=== PATIENT | female | born 1960 | race Caucasian/White ===

== ENCOUNTER 2018-01-12 14:11 | Emergency (ER) | payer OTHER ==
[~2018-01-12] VITALS: Ht 167.6 cm; Wt 90.7 kg
--- OUTSIDE RECORDS SUMMARY | ~2018-01-12 | XMS | Clinical Summary ---
Demographics + + + | Address | [address] | | | [place] [address] | + + + | Home Phone | | + + + | Preferred Language | Unknown | + + + | Marital Status | | + + + | Mormon Affiliation | Unknown | + + + | Race | White | + + + | Ethnic Group | Not or | + + + Author + + + | Author | [facility] | + + + | Organization | [facility] | + + + | Address | Unknown | + + + | Phone | Unavailable | + + + Support + + + + + | Name | Relationship | Address | Phone | + + + + + | Zia Pablo | ECON | [address] | | | | | [place] | | | | | [address] | | + + + + + Care Team Providers + +------+ + | Care Machine Setter Automatic Name | Role | Phone | + +------+ + | Amado Medeiros DO | PP | | + +------+ + Source Comments HOLLIE is fully live on both [facility] Ambulatory and [facility] InPatient.[facility] Allergies No Known Allergies Current Medications + + +-------+---------+------+------+-------+ | Prescription | Sig. | Disp. | Refills | Star | End | Statu | | | | | | t | Date | s | | | | | | Date | | | + + +-------+---------+------+------+-------+ | GABAPENTIN ORAL | Take by mouth two | | | | | Activ | | | times daily. | | | | | e | + + +-------+---------+------+------+-------+ | CARBAMAZEPINE ORAL | Take 200 mg by mouth | | | | | Activ | | | two times daily. | | | | | e | + + +-------+---------+------+------+-------+ | AMLODIPINE | Take 10 mg by mouth | | | | | Activ | | BESYLATE (AMLODIPINE | two times daily. | | | | | e | | ORAL) | | | | | | | + + +-------+---------+------+------+-------+ | METFORMIN HCL | Take 500 mg by mouth | | | | | Activ | | (METFORMIN ORAL) | once daily. | | | | | e | + + +-------+---------+------+------+-------+ | TORSEMIDE ORAL | Take 20 mg by mouth | | | | | Activ | | | two times daily. | | | | | e | + + +-------+---------+------+------+-------+ | dicyclomine 20 mg | Take 20 mg by mouth | | | | | Activ | | Oral tablet | four times daily. | | | | | e | + + +-------+---------+------+------+-------+ | ASPIRIN ORAL | Take 80 mg by mouth. | | | | | Activ | | | | | | | | e | + + +-------+---------+------+------+-------+ | NAPROXEN ORAL | Take by mouth. | | | | | Activ | | | | | | | | e | + + +-------+---------+------+------+-------+ | ZOLPIDEM TARTRATE | Take by mouth. | | | | | Activ | | (AMBIEN ORAL) | | | | | | e | + + +-------+---------+------+------+-------+ | VENTOLIN HFA 90 | | | 6 | 02/1 | | Activ | | mcg/actuation | | | | 6/20 | | e | | inhalation HFA | | | | 16 | | | | aerosol inhaler | | | | | | | + + +-------+---------+------+------+-------+ Active Problems + + + | Problem | Noted Date | + + + | Drusen (degenerative) of retina | 07/31/2012 | + + + | Choroidal disorder | 03/11/2012 | + + + Social History + +-------+ +--------+------+ | Tobacco Use | Types | Packs/Day | Years | Date | | | | | Used | | + +-------+ +--------+------+ | Former Smoker | | | | | + +-------+ +--------+------+ + + + | Sex Assigned at | Date Recorded | | | | + + + | Not on file | | + + + Plan of Treatment +--------+ + + + + | Date | Type | Specialty | Care Team | Description | +--------+ + + + + | 12/06/ | Procedure | | | | | 2019 | | | | | +--------+ + + + + | 12/07/ | Office | | Crescencio Gregory, | | | 2018 | Visit | | [address] | | | | | | [place] | | | | | | [place], [place] | | | | | | [address] | | | | | | [phone] | | | | | | | | +--------+ + + + + + + + + + | Health Maintenance | Due Date | Last Done | Comments | + + + + + | INFLUENZA VACCINE | | | | | (FLU SHOT) | 8 | | | + + + + + Results Not on filefrom Last 3 Months"
--- OUTSIDE RECORDS SUMMARY | ~2018-01-12 | XMS | Clinical Summary ---
Demographics + + + | Address | [address] | | | [place] [address] | + + + | Home Phone | | + + + | Preferred Language | Unknown | + + + | Marital Status | | + + + | Faith Affiliation | Unknown | + + + | Race | White | + + + | Ethnic Group | Not or | + + + Author + + + | Author | [facility] | + + + | Organization | [facility] | + + + | Address | Unknown | + + + | Phone | Unavailable | + + + Support + + + + + | Name | Relationship | Address | Phone | + + + + + | Zia Pablo | ECON | [address] | | | | | [place] | | | | | [address] | | + + + + + Care Team Providers + +------+ + | Care Air Brake Operator Name | Role | Phone | + +------+ + | Amado Medeiros DO | PP | | + +------+ + Source Comments HOLLIE is fully live on both [facility] Amb[facility] and [facility] InPatient.[facility] Allergies No Known Allergies Current Medications [...] | | 2018 | Visit | | [address] | | | | | | [place] | | | | | | [place], [place] | | | | | | [address] | | | | | | [phone] | | | | | | | [...]
[~2018-01-12 14:11] MED LIST: CARBATROL100 MG; DICYCLOMINE HCL20 MG PO; GABAPENTIN300 MG PO; LISINOPRIL2.5 MG PO; METFORMIN HCL500 MG PO; NEURONTIN400 MG PO; NORCO 5-325 TA1 EACH PO; NORVASC10 MG PO; OMEPRAZOLE20 M1 PO; PRINIVIL10 MG PO; TORSEMIDE20 MG PO; VITAMIN D50000 UNI1 PO; ZOLPIDEM TARTRAT5 MG PO
[2018-01-12] MEDS ORDERED: FLAGYL500 MG PO (16:44)
[2018-01-12] MEDS ORDERED: ZOFRAN ODT4 MG PO (16:44)
== END 2018-01-12 18:01 | disposition home or self-care (01) ==
LOC: ED 14:11
DX: K52.9 Noninfective gastroenteritis and colitis, unspecified (principal); Z79.899 Other long term (current) drug therapy
CPT/HCPCS: 74177; 80053; 81001; 83605; 85025; 86850; 86900; 86901; 87077; 87088; 87186; 96361; 96374; 96375; 99284; J2270; J2405; J7030; Q9967

== ENCOUNTER 2018-09-11 15:13 | Observation (INO) | payer OTHER ==
[~2018-09-11] VITALS: Ht 167.6 cm; Wt 87.1 kg
[~2018-09-11 15:13] MED LIST changes: +FLAGYL500 MG PO; +ZOFRAN ODT4 MG PO
--- NOTE | 2018-09-11 19:40 | NUR ---
BEDSIDE REPORT RECEIVED FROM LOU CONNELLY. PT RESTING IN BED AWAKE, RATES PAIN 8-9/10. CALL LIGHT IN REACH. PT VERBALIZES UNDERSTANDING TO USE CALL LIGHT PRIOR TO GETTING OUT OF BED.
--- NOTE | 2018-09-11 20:10 | NUR ---
PT ASSESSMENT COMPLETE. IV ANTIBIOTIC INFUSING WNL. PT RATES PAIN 7/10 IN BACK AT THIS TIME, PRN IV PAIN MEDICATION ADMINISTERED. PT GIVEN FOLDED DRAW SHEET TO BRACE ABDOMEN. BOWEL TONES ACTIVE X 4, ABD SOFT. PT EDUCATION PROVIDED ON DIET, BROTH AND SPRITE PROVIDED. CALL LIGHT IN REACH. NO REQUESTS AT THIS TIME.
--- NOTE | 2018-09-11 20:35 | NUR ---
PT CONCERNED ABOUT HER "IBS" MEDICATION, AND MISSING IT. CONTACTED DR PURDY, RECEIVED ORDER FOR TONIGHT. WILL PASS TO DAYSHIFT, FOR DR PURDY TO DISCUSS FURTHER ADMINISTRATION OF MEDICATION. CURRENT ORDERS ARE "BRIDGE" ORDERS, OK FROM DR PURDY TO CONTINUE THE BRIDGE ORDERS. PT AWARE THAT DR PURDY WILL DISCUSS WITH HER, DICYCLOMINE FOR FURTHER DOSING TOMORROW.
--- NOTE | 2018-09-11 21:08 | NUR ---
SCHEDULED MEDICATION ADMINISTERED. PT RESTING IN BED, RATES PAIN 4/10 IN BACK "ITS OKAY". ADDITIONAL PILLOW PROVIDED. IV ANTIBIOTIC INFUSION COMPLETE. IVF INFUSING WNL. CALL LIGHT IN REACH.
--- NOTE | 2018-09-11 22:33 | NUR ---
CHECKED ON PT, RESTING IN BED. SBA TO RESTROOM FOR VOID. GAIT STEADY. PT RATES PAIN 4/10 STATES "ITS TOLERABLE". DENIES NEED FOR PRN PAIN MEDICATION. ORAL CARE COMPLETE. GERMÁN SAVAGE NOW IN ROOM FOR VITALS. IVF INFUSING WNL.
--- NOTE | 2018-09-12 00:41 | NUR ---
CHECKED ON PT, RESTING IN BED WITH EYES CLOSED. BREATHING EQUAL AND NON-LABORED. LIGHTS OFF IN ROOM.
--- NOTE | 2018-09-12 02:02 | NUR ---
IN PT ROOM FOR IV ANTIBIOTIC ADMINISTRATION. VSS. PT DENIES ANY PAIN AT THIS TIME. BOWEL TONES ACTIVE X 4, ABD SOFT, NON-TENDER W PALPATION AT THIS TIME. IV ANTIBIOTIC INFUSING WNL, SITE FLUSHED WNL. DOOR SHUT PER PT REQUEST, LIGHTS OFF IN ROOM. DENIES TOILETING NEEDS AT THIS TIME. CALL LIGHT IN REACH.
--- NOTE | 2018-09-12 04:55 | NUR ---
CHECKED ON PT, RESTING IN BED WITH EYES CLOSED. BREATHING EQUAL AND NON-LABORED. LIGHTS OFF IN ROOM.
--- NOTE | 2018-09-12 05:00 | NUR ---
PT RESTED WELL THIS SHIFT. PAIN WELL CONTROLLED WITH PRN IV DILAUDID X 1. IVF INFUSING WNL THROUGHOUT SHIFT. IV FLAGYL ORDERED. BOWEL TONES ACTIVE, ABD SOFT, TENDER IN RUQ W PALPATION. VSS. SBA TO RESTROOM FOR VOIDS. NPO SINCE MIDNIGHT FOR SURGERY. NO NAUSEA NOTED.
--- NOTE | 2018-09-12 05:41 | NUR ---
CALL LIGHT ANSWERED, SBA TO RESTROOM FOR UNMEASURED VOID AND BACK TO BED. PT RATES PAIN 4/10 IN ABD. PRN NAUSEA MEDICATION ADMINISTERED. PT STATES "I WOULD NORMALLY TAKE TUMS RIGHT NOW". IVF INFUSING WNL. CALL LIGHT IN REACH. PT REMINDED OF NPO STATUS, VERBALIZES UNDERSTANDING.
--- NOTE | 2018-09-12 07:52 | EKG ---
[facility] [address] [place], [place] [address] Signed Normal sinus rhythm Inferior infarct , age undetermined Abnormal ECG No previous ECGs available Confirmed by NAMAN PACHECO MD ([id number]) on 09/12/2018 7:52:33 AM Electronically Signed By: NAMAN PACHECO MD 09/12/18 0752 PATIENT NAME: IBIS DIAS AMAIRANI Electrocardiogram DATE OF : 62 PHYSICIAN: NAMAN PACHECO MD REPORT #: [id number] REPORT IS CONFIDENTIAL AND NOT TO BE RELEASED WITHOUT AUTHORIZATION
--- NOTE | 2018-09-12 08:50 | NUR ---
NAILING MACHINE OPERATOR AUTOMATIC CAME TO THIS RN STATING PT IS REALLY REALLY UPSET AND CRYING AND "HER IV IS ON FIRE." THIS RN TO BEDSIDE. POTASSIUM INFUSING. INFUSION STOPPED. PIV FLUSHED. PT REPOTS PAIN IS GONE. INFUSION RESTARTED WITH IV FLUIDS RUNNING CONCURRENTLY, RATE OF POTASSIUM SLOWED TO 60ML/HR. PT REPORS NO PAIN. BED RAILS UP. CALL LIGHT WITHIN REACH.
--- NOTE | 2018-09-12 09:40 | NUR ---
PATIENT TAKEN TO SURGERY AT THIS TIME, PRE PROCEDURE WIPES DONE AND FLAGYL COMPLETED.
--- NOTE | 2018-09-12 11:28 | NUR ---
09/12/18 1128 Eric Armijo 1105 PT ARRIVES TO PACU, KILN PLACER REPORT RECVD. ORAL AIRWAY IN PLACE, PT WAKING. ORAL AIR WAY REMOVED FOR PT COMFORT. O2 JULIA IN PLACE AT 8L. VITALS STABLE. PT RESTING. 1107 PT AWAKE ON AND OFF. PT C/O BEING "HOT". BLANKETS REMOVED AND COOL AIR APPLIED. PT C/O NAUSEA, ZOFRAN GIVEN. NO EMESIS NOTED AT THIS TIME. PT ON RA FOR COMFORT, 02 SATS 94%. 1118 PT AWAKE ON AND OFF. VITALS STABLE. DENIES PAIN. C/O OF "STILL FEELING A LITTLE SICK." DR. PURDY AT BEDSIDE SPEAKING WITH PT. 1125 PT AWAKE C/O CONTINUED NAUSEA. PHENERGAN GIVEN. PT C/O 7/10 PAIN. WILL MONITOR 02 AND RR AFTER PHENERGAN TO DETERMINE IF MORE MEDICATION TO BE GIVEN.
--- NOTE | 2018-09-12 11:48 | CONS ---
[facility] [address] [place], [place] [address] Signed DATE OF CONSULTATION: 09/12/2018 CHIEF COMPLAINT: Epigastric abdominal pain. HISTORY OF PRESENT ILLNESS: Ibis is a 58-year-old female who was having belt like epigastric abdominal pain radiating around to her back. She had nausea and vomiting. She came to emergency room for evaluation. She ruled out for a cardiac event. Consequently, she underwent an ultrasound of the right upper quadrant. She has multiple gallstones up to a centimeter in diameter. One appears to be lodged in the neck of the gallbladder. Common bile duct is unremarkable. She had a positive Fuentes sign. The gallbladder wall is slightly thickened at 3 mm. She was given Rocephin and Flagyl, and I was asked to admit her as a general surgeon on-call. Overnight, she has done very well. PAST MEDICAL HISTORY: 1. Trigeminal neuralgia. 2. Diabetes. 3. Hypertension. 4. Fundus flavimaculatus. PAST SURGICAL HISTORY: 1. Appendectomy. 2. x1 for twins. 3. Tonsillectomy. SOCIAL HISTORY: She does not smoke. She has a drink about once a week. She is to Geoff, at [phone]. 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 She has 4 of her own children[address] Dr. Amado Gupta is her primary care provider. She prefers the [facility]. FAMILY HISTORY: Dad had heart disease. Mom had diabetes. REVIEW OF SYSTEMS: She had 10 systems reviewed and the pertinent positives are included in the above. ALLERGIES: Levaquin. MEDICATIONS: 1. Flagyl. Electronically Signed By: MARISELA PURDY MD 09/12/18 1148 PATIENT NAME: IBIS DIAS CONSULTATION DATE OF : 62 REPORT #: [id number] PHYSICIAN: MARISELA PURDY MD PCP: AMADO GUPTA DO REPORT IS CONFIDENTIAL AND NOT TO BE RELEASED WITHOUT AUTHORIZATION [facility] [address] [place], [place] [address] Signed 2. Zofran. 3. Metformin. 4. Amlodipine. 5. Dicyclomine. 6. Lisinopril. 7. Torsemide. 8. Zolpidem. 9. Carbamazepine. 10. Omeprazole. 11. Gabapentin. 12. Vitamin D. PHYSICAL EXAMINATION: VITAL SIGNS: Her blood pressure is 119/67, heart rate 64, respiratory rate 16, temperature is 97.7. She is 96% on room air. She is 5 feet 6 inches and 87 kg. GENERAL: Ibis is a 58-year-old female lying supine, semi-recumbent in her hospital bed. She does appear systemically ill or toxic. She is not jaundiced. She is not in pain currently. LUNGS: Clear to auscultation bilaterally. HEART: Regular rate and rhythm. ABDOMEN: Obese, but soft. She points to the right upper quadrant as the area of her pain. LABORATORY DATA: Her white blood cell count is 6.9, neutrophils 53, hemoglobin 14, potassium 3.4, BUN 14, creatinine 0.63, glucose 124, INR is 0.9, total bilirubin 0.5, AST 45, ALT 29, alkaline phosphatase 90, lipase 43, albumin is 4.3, and troponin was negative. RADIOGRAPHIC STUDIES: Her chest x-ray is unremarkable. Ultrasound of the gallbladder shows the gallbladder wall slightly thickened at 3 mm with multiple small stones measuring up to a centimeter in diameter. One stone appears to be lodged in the neck of the gallbladder. Her common bile duct is unremarkable. She had a positive Fuetnes sign. ASSESSMENT AND PLAN: Ibis is a 58-year-old female who presents with classic cholecystitis and cholelithiasis associated with biliary colic. Fortunately, she is doing much better now. I have reviewed with her the location and function of the gallbladder. We have discussed laparoscopic versus open cholecystectomy. She understands expected intraop and postop course. We did review the risks including, but not limited to bleeding, infection, scarring, change in contour of the skin, damage to bowel, damage to the main bile duct, incisional hernias, and other unforeseen comorbidities. She has expressed understanding and would like to proceed with surgery. Electronically Signed By: MARISELA PURDY MD 09/12/18 1148 PATIENT NAME: IBIS DIAS [facility] CONSULTATION DATE OF : 62 REPORT #: [id number] PHYSICIAN: MARISELA PURDY MD PCP: AMADO GUPTA DO REPORT IS CONFIDENTIAL AND NOT TO BE RELEASED WITHOUT AUTHORIZATION [facility] [address] [place] [address] Signed Marisela Purdy MD ALB/MODL /[id number] cc: MD Amado Roque DO Copies: MARISELA PURDY MD, KENT DO ~ Electronically Signed By: MARISELA PURDY MD 09/12/18 1148 PATIENT NAME: IBIS DIAS AMAIRANI CONSULTATION DATE OF : 62 REPORT #: [id number] PHYSICIAN: MARISELA PURDY MD PCP: AMADO GUPTA DO REPORT IS CONFIDENTIAL AND NOT TO BE RELEASED WITHOUT AUTHORIZATION
--- NOTE | 2018-09-12 12:27 | NUR ---
PATIENT ARRIVED BACK FROM SURGERY ON RA, SHE IS ALERT AND ORIENTED AND ON RA WITH PAIN LEVEL TOLERABLE AT REST BUT WITH MOVEMENT 10/10. HER ABDOMINAL LAP SITES X3 ARE CDI WITH TAPE ALL INTACT, ICE APPLIED. SHE WAS ABLE TO TRANSFER FROM THE STRETCHER TO THE BED BY WALKING AND WAS STEADY ON HER FEET. SHE STILL HAS A LITTLE NAUSEA BUT IS TOLERATING WATER AT THIS TIME.
--- NOTE | 2018-09-12 13:14 | NUR ---
PATIENT ASLEEP SITTING UP IN BED, ON RA, VITALS COMPLETE, NO C/O PAIN AT THIS TIME.
--- NOTE | 2018-09-12 14:26 | NUR ---
THIRD SET OF POST OP VITALS DONE, PATIENT SITTING UP IN BED EATING JELLO, CRACKERS, AND APPLESAUCE. PAIN CURRENTLY AT A 04/21, PATIENT GIVEN 0.5MG OF DILAUDID IV AT THIS TIME
--- NOTE | 2018-09-12 14:58 | NUR ---
PATIENT PAIN UNCHANGED AT THIS TIME BUT PATIENT CONTINUES TO TOLERATE FOOD SO WE ARE GOING TO TRY 1 NORCO PO AT THIS TIME. LAST SET OF POST OP VITALS DONE NOW.
--- NOTE | 2018-09-12 15:37 | NUR ---
PATIENT HAS BEEN UP A FEW TIME SENCE SURGERY, GAVE PATIENT JELLO AND APPLE SAUSE, FRESH WATER WAS GIVEN, CALL LIGHT IN REACH. IS IN THE ROOM WITH PATIENT.
[2018-09-12] MEDS ORDERED: NORCO 5-325 TA1 EACH PO (16:45)
[2018-09-12] MEDS ORDERED: PROMETHAZINE HC25 M1 PO (16:46)
--- NOTE | 2018-09-12 17:04 | NUR ---
PATIENT AMBULATED IN THE ROOM AND TOLERATED AMBULATING WELL, STEADY ON HER FEET, EATING A REGULAR DIET AND UP TO THE BATHROOM TO VOID. D/C INSTRUCTIONS GIVEN BY THE PHARMASICT AT THIS TIME.
--- NOTE | 2018-09-12 17:22 | NUR ---
CARLOS FROM PHARMACY AND I SPOKE WITH IN REGARDS TO HOW HOME SCRIPT IS WRITTEN MAY BE DIFFICULT TO FILL. GAVE TELEPHONE ORDER TO DISPENCE #6 NORCO PACK HOME WITH PT JACK. ORDER WRITTEN AND GIVEN TO [employer] AGENT TEAM MEMBER
--- NOTE | 2018-09-13 08:05 | OR ---
[facility] [address] [place], [place] [address] Signed DATE OF OPERATION: 09/12/2018 SURGEON: Marisela Purdy MD PREOPERATIVE DIAGNOSES: Acute cholecystitis and cholelithiasis. POSTOPERATIVE DIAGNOSES: Acute cholecystitis and cholelithiasis. PROCEDURE: Laparoscopic cholecystectomy with intraoperative cholangiogram. ESTIMATED BLOOD LOSS: None. FINDINGS: The gallbladder wall was mildly thickened with multiple 2 mm to 10 mm gallstones. The intraoperative cholangiogram was unremarkable. INDICATIONS: Ibis is a 58-year-old obese diabetic female, who presented with belt-like epigastric abdominal pain radiating through to her back. She had nausea and vomiting. She ended up in the emergency room for evaluation. She was tender at that time with a normal white count. Liver function tests were unremarkable. Cardiac enzymes were negative. EKG was negative. Lipase also negative. Chest x-ray was negative. Ultrasound of the right upper quadrant showed the mildly thickened gallbladder wall at 3 mm with the multiple stones with possibly one lodged in the neck of her gallbladder. She had a positive Fuentes sign at that time. Common bile duct was unremarkable. I was asked to admit her overnight. She was given pain control along with Rocephin and Flagyl and IV fluids. She said this morning the significant severe pain has passed and she is feeling much better. I reviewed with her the above findings. We discussed the location of function of the gallbladder. We discussed laparoscopic versus open cholecystectomy. She understands expected intraop and postop course. She understands the risks including, but not limited to bleeding, infection, scarring, change in contour of the skin, damage to bowel, damage to main bile duct, incisional hernias, and other unforeseen comorbidities. She had expressed understanding and wished to proceed. PROCEDURE NOTE: Ibis was taken into the operating room and placed in supine position under general Electronically Signed By: MARISELA PURDY MD 09/13/18 0805 PATIENT NAME: IBIS DIAS OPERATIVE REPORT DATE OF : 62 REPORT #: [id number] PHYSICIAN: MARISELA PURDY MD PCP: SHEA GUPTA DO REPORT IS CONFIDENTIAL AND NOT TO BE RELEASED WITHOUT AUTHORIZATION [facility] [address] [place], [place] [address] Signed endotracheal tube anesthesia. She was given preoperative antibiotics along with subcutaneous heparin. SCDs were utilized. She was then prepped and draped in usual sterile fashion. All trocars were placed in usual positions under direct visualization of camera without difficulty. The gallbladder was grasped and elevated in the right upper quadrant. Pictures were taken throughout for photodocumentation. The distal portion of the gallbladder and the triangle of Calot were dissected free along with the cystic duct and the cystic artery. Three sequential clips were placed across the cystic artery as it had branched posteriorly that then branched once again. The intraoperative cholangiocatheter was inserted into the cystic duct. Intraoperative cholangiogram was performed. This was unremarkable. There were no filling defects and the contrast flowed readily into the duodenum. The cystic duct stump was secured with a PDS Endoloop and 2 clips were placed across the cystic duct stump to elijah its location. After this, the gallbladder was removed from the gallbladder fossa with the help of the cautery and placed into an EndoCatch bag. The right upper quadrant was irrigated and suctioned out until clear. All hemostasis was quite satisfactory. After this, we used our laparoscopic suturing device to pass 0 Vicryl suture on either side of the fascia of the subxiphoid trocar site. This was tied down to close this fascia primarily. After this, all the gas was allowed to escape and all trocars were removed along with the gallbladder. The gallbladder was opened on the back table by our circulating nurse. It had multiple yellow cholesterol gallstones anywhere from 2 to 3 mm up to 10 to 12 mm. She also had a mildly thickened gallbladder wall with some cholesterolosis. We then closed the supraumbilical trocar site with interrupted [id number] and simple 0 Vicryl sutures. Local anesthetic was copiously injected into the each trocar site. Each trocar site was irrigated and suctioned out until clear. The skin and dermis of each trocar site were closed with interrupted 3-0 subcuticular Monocryl sutures. Dry gauze and tape were then applied to all incisions. Ibis was awakened from her anesthesia, extubated in the OR, and taken to recovery room in stable condition. Marisela Purdy MD ALB/MODL /[id number] cc: DO Marisela Zamora MD Electronically Signed By: MARISELA PURDY MD 09/13/18 0805 PATIENT NAME: IBIS DIAS [facility] OPERATIVE REPORT DATE OF : 62 REPORT #: [id number] PHYSICIAN: MARISELA PURDY MD PCP: SHEA GUPTA DO REPORT IS CONFIDENTIAL AND NOT TO BE RELEASED WITHOUT AUTHORIZATION [facility] [address] [facility] [place], [place] [address] Signed Copies: SHEA GUPTA ANDREW L MD ~ Electronically Signed By: MARISELA PURDY MD 09/13/18 0805 PATIENT NAME: IBIS DIAS AMAIRANI OPERATIVE REPORT DATE OF : 62 REPORT #: [id number] PHYSICIAN: MARISELA PURDY MD PCP: SHEA GUPTA DO REPORT IS CONFIDENTIAL AND NOT TO BE RELEASED WITHOUT AUTHORIZATION
== END 2018-09-12 17:45 | disposition home or self-care (01) ==
LOC: ED 15:13 → MS 15:15
PROVIDERS: ADMIT Colon & Rectal Surgery
PROC: 0FT44ZZ Resection of Gallbladder, Percutaneous Endoscopic Approach (ICD-10-PCS; principal; 2018-09-11)
PROC: BF101ZZ Fluoroscopy of Bile Ducts using Low Osmolar Contrast (ICD-10-PCS; 2018-09-11)
DX: K80.12 Calculus of gallbladder with acute and chronic cholecystitis without obstruction (principal); E11.9 Type 2 diabetes mellitus without complications; I10 Essential (primary) hypertension; G50.0 Trigeminal neuralgia; H35.53 Other dystrophies primarily involving the sensory retina; E66.9 Obesity, unspecified; Z88.1 Allergy status to other antibiotic agents; Z79.2 Long term (current) use of antibiotics; Z79.84 Long term (current) use of oral hypoglycemic drugs; Z79.899 Other long term (current) drug therapy; Z68.30 Body mass index [BMI] 30.0-30.9, adult
CPT/HCPCS: 00790; 71045; 71046; 74300; 76705; 80053; 83690; 84484; 85025; 85610; 93005; 93010; 96361; 96372; 96374; 96375; 96376; 99285-25; C9113; G0378; J0696; J1170; J1644; J1885; J2250; J2405; J2550; J2704; J2765; J3010; J3480; J7042; J7120; Q9967

== ENCOUNTER 2025-08-19 12:54 | Emergency (ER) | payer OTHER ==
[~2025-08-19] VITALS: Ht 167.6 cm; Wt 81.0 kg
[~2025-08-19 12:54] MED LIST changes: +PROMETHAZINE HC25 M1 PO
[2025-08-19] MEDS ORDERED: IBUPROFEN 600 MG TAB PO ONE (16:00)
[2025-08-19 16:34] VITALS: BP 127/80
== END 2025-08-19 16:36 | disposition home or self-care (01) ==
LOC: ED 12:54
DX: S43.422A Sprain of left rotator cuff capsule, initial encounter (principal); I10 Essential (primary) hypertension; E11.9 Type 2 diabetes mellitus without complications; W07.XXXA Fall from chair, initial encounter; Z79.899 Other long term (current) drug therapy; Z79.84 Long term (current) use of oral hypoglycemic drugs; Z88.1 Allergy status to other antibiotic agents
CPT/HCPCS: 73030; 99283; A9270